=== PATIENT | female | born 1975 | race Caucasian/White ===

== ENCOUNTER 2024-08-22 11:58 | Emergency (ER) | payer BC | END 2024-08-22 12:42 | disposition home or self-care (01) | LOC: LB.ED 11:58 | DX: T23.251A Burn of second degree of right palm, initial encounter (principal); I10 Essential (primary) hypertension; F17.200 Nicotine dependence, unspecified, uncomplicated; Z79.899 Other long term (current) drug therapy; Z86.16 Personal history of COVID-19; Z90.49 Acquired absence of other specified parts of digestive tract; Z90.710 Acquired absence of both cervix and uterus; X30.XXXA Exposure to excessive natural heat, initial encounter | CPT/HCPCS: 16020; 99283; 99283-25 ==